=== PATIENT | female | born 2000 | race Caucasian/White ===

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

== ENCOUNTER 2021-01-13 08:17 | Emergency (ER) | payer BC ==
[2021-01-13 08:40] VITALS: BP 132/87; PULSE 93
[2021-01-13] MEDS ORDERED: predniSONE 20 MG Tab PO ONE (08:52)
--- NOTE | 2021-01-13 08:55 | EDM.PDOC ---
ED HPI GENERAL MEDICAL PROBLEM - General Chief Complaint: Skin Complaint Stated Complaint: RASH ON LEHS AND KNEES Time Seen by Provider: 01/13/21 08:40 Source of Information: Reports: Patient, Family (father) History Limitations: Reports: No Limitations - History of Present Illness INITIAL COMMENTS - FREE TEXT/NARRATIVE: 20-year-old female presents to the ED in the accompaniment of her father. She reports developing a rash on her upper extremities particularly lateral antecubital fossa's bilaterally which is mildly itchy. No facial rash mild on her chest abdomen and back but became much worse posterior legs last evening and this morning much worse on her anterior thighs and lower legs. It is extremely pruritic. She has been taking Benadryl and was started on triamcinolone cream topically yesterday in the clinic. She has not taken any new medications as of late. Cannot think of anything that she has eaten that has bothered her and she has no known allergies. She has been ill with upper respiratory tract infection with mild nasal congestion sore throat and minimal cough. Her father thought she should be checked for Covid but she declined. She was afebrile at time of my exam. Onset: Gradual Onset Date: 01/11/21 Duration: Day(s):, Getting Worse Location: Reports: Generalized Quality: Reports: Other Severity: Moderate (Moderately pruritic) Improves with: Reports: Medication (Itching is relieved by Benadryl) Worsens with: Reports: Other Context: Denies: Activity, Exercise, Lifting, Sick Contact, Trauma Associated Symptoms: Reports: Rash. Denies: No Other Symptoms, Confusion, Chest Pain, Cough, cough w sputum, Diaphoresis, Fever/Chills, Headaches, Loss of Appetite, Malaise, Nausea/Vomiting, Seizure, Shortness of Breath, Syncope, Weakness Treatments COTTON CONVERTER: Reports: Other (see below) (Benadryl 50 mg every 6 hours as needed yesterday) Bilateral Leg Pain Score (Numeric/FACES): 7 - Related Data Allergies Allergy/AdvReac Type Severity Reaction Status Date / Time No Known Allergies Allergy Verified 01/13/21 08:41 Home Meds: Home Meds Triamcinolone Acetonide [Triamcinolone Acetonide 0.1% Crm] 1 applic TOP BID 01/13/21 [History] predniSONE [Prednisone] 20 mg PO BID #12 tablet 01/13/21 [Rx] Past Medical History HEENT History: Reports: None TIN ASSORTER History: Reports: - Past Surgical History HEENT Surgical History: Reports: Tonsillectomy Social & Family History - Family History Family Medical History: No Pertinent Family History - Caffeine Use Caffeine Use: Reports: None - Living Situation & Occupation Living situation: Reports: with Family Occupation: Student ED ROS GENERAL - Review of Systems Review Of Systems: See Below Constitutional: Denies: Fever, Chills, Malaise, Weakness, Fatigue, Decreased Appetite, Weight Loss HEENT: Reports: Rhinitis (Mild 2 days ago better now), Throat Pain (Minimal sore throat on the right side better now) Respiratory: Denies: Shortness of Breath, Wheezing, Pleuritic Chest Pain, Cough, Sputum, Hemoptysis, Other Cardiovascular: Denies: Chest Pain, Blood Pressure Problem, Claudication, Dyspnea on Exertion Endocrine: Reports: No Symptoms GI/Abdominal: Reports: No Symptoms : Reports: No Symptoms Musculoskeletal: Reports: No Symptoms Skin: Reports: Pruritis, Rash (Urticarial lacy rash throughout both lower extremities) Neurological: Reports: No Symptoms Psychiatric: Reports: No Symptoms Hematologic/Lymphatic: Reports: No Symptoms ED EXAM, SKIN/RASH Exam: See Below Exam Limited By: No Limitations General Appearance: Alert, WD/WN, No Apparent Distress, Other (Temperature is 36.9 degrees. Heart rate 93 and sinus respiratory 16 with O2 sats of 99% room air BP 132/87) Eye Exam: Bilateral Eye: Normal Inspection (No blepharal pallor or scleral icterus.) Throat/Mouth: Normal Inspection, Normal Lips, Normal Oropharynx Head: Atraumatic, Normocephalic Neck: Normal Inspection, Supple, Non-Tender, Full Range of Motion Respiratory/Chest: No Respiratory Distress, Lungs Clear, Normal Breath Sounds, No Accessory Muscle Use Cardiovascular: Normal Peripheral Pulses, Regular Rate, Rhythm, No Edema, No Gallop, No Murmur, No Rub Peripheral Pulses: 3+: Carotid (L), Carotid (R), Posterior Tibial (L), Posterior Tibial (R), Dorsalis Pedis (L), Dorsalis Pedis (R) GI/Abdominal: Normal Bowel Sounds, Soft, Non-Tender, No Organomegaly, No Abnormal Bruit, No Mass, Pelvis Stable Skin: Other (Giant hives with meme outlines both lower extremities posterior a nd anterior worse on her thighs and less so on her lower extremities feet and ankles. She has slight involvement of the antecubital fossa's bilaterally particularly lateral aspects. It is very pruritic.) Course - Vital Signs Last Recorded V/S: Last Vital Signs Temp 36.9 C 01/13/21 08:36 Pulse 93 01/13/21 08:36 Resp 16 01/13/21 08:36 BP 132/87 01/13/21 08:36 Pulse Ox 99 01/13/21 08:36 - Orders/Labs/Meds Meds: Medications Discontinued Medications Generic Name Dose Route Start Last Admin Trade Name Sanjiv PRN Reason Stop Dose Admin Prednisone 20 mg 01/13/21 08:52 Prednisone 20 Mg Tab PO 01/13/21 08:53 ONETIME ONE - Radiology Interpretation Free Text/Narrative:: Atypical urticaria development both lower extremities posterior and anterior thighs. This is preceded by mild viral upper respiratory tract infection 3 to 4 days ago. Started on triamcinolone cream through the clinic yesterday. Benadryl as needed. Today we will add prednisone 20 mg twice daily for the next 6 days with the first tablet provided to the ED today. Follow-up advised in the clinic if not markedly improved in 48 hours time Departure - Departure Time of Disposition: 08:52 Disposition: Home, Self-Care 01 Condition: Fair Clinical Impression: Urticaria - Discharge Information *PRESCRIPTION DRUG MONITORING PROGRAM REVIEWED*: Not Applicable *COPY OF PRESCRIPTION DRUG MONITORING REPORT IN PATIENT SAI: Not Applicable Prescriptions: predniSONE [Prednisone] 20 mg PO BID #12 tablet Instructions: Hives Referrals: Ermias Moreira MD [Primary Care Provider] - Forms: ED Department Discharge Additional Instructions: Evaluation in the emergency room today in regards to break out in a rash involving both upper extremities and particularly both lower extremities this morning. This is likely been associated with recent viral upper respiratory tract infection with Zhao mild nasal congestion and minimal sore throat. You may continue to probably apply triamcinolone cream as given to you through the clinic yesterday. Avoid hot shower or bath as it will make the rash worse. May use Benadryl 50 mg every 6 hours as needed for relief of itch particular at bedtime to help sleep. Use prednisone which is a steroid to reduce inflammation twice daily with breakfast and supper for the next 6 days. First tablet was given in the ED and next tablet would be [facility] at [facility]. This takes 4 to 6 hours to start to work but expect improvement in the rash over the next 36 hours. Follow-up with personal care provider if not markedly improved in 48 to 72 hours time Sepsis Event Note (ED) - Evaluation Sepsis Screening Result: No Definite Risk - Focused Exam Vital Signs: Vital Signs Temp Pulse Resp BP Pulse Ox 01/13/21 08:36 36.9 C 93 16 132/87 99
== END 2021-01-13 09:12 | disposition home or self-care (01) ==
LOC: JD.ED 08:17
DX: L50.9 Urticaria, unspecified (principal)
CPT/HCPCS: 99283; J7512